=== PATIENT | male | born 1970 | race Caucasian/White ===

== ENCOUNTER 2016-11-01 03:22 | Emergency (ER) | payer OTHER ==
[2016-11-01 03:31] VITALS: BP 121/93; PULSE 90; RESP 18; TEMP 98.2; O2SAT 97
[2016-11-01] MEDS ORDERED: IBUP800T23 PO (04:11)
--- NOTE | 2016-11-01 04:11 | PD ---
HPI Chief Complaint: Injury Time Seen by Provider: 03:41 Travel History International Travel<30 days: No Contact w/Intl Traveler<30days: No Traveled to known affect area: No History of Present Illness HPI The patient is a 46-year-old male that felt some stiffness in his left calf for several days but tonight at about 3:00 pushed off of his left leg and felt a pop like a rubber band in the calf. He complains of pain in the area of the left calf. He can still walk well and extend his ankle without a problem other than minimal pain. [facility] Past Medical History Medical History: Denies Significant Hx Tetanus Vaccination: < 5 Years Influenza Vaccination: No Past Surgical History Surgical History: No Previous Surgery Social History Alcohol Use: No Tobacco Use: No Allergies-Medications (Allergen,Severity, Reaction): Coded Allergies: No Known Allergies (Unverified , 11/01/16) Reported Meds & Prescriptions Reported Meds & Active Scripts Active No Active Prescriptions or Reported Medications Review of Systems Except as stated in HPI: all other systems reviewed are Neg Physical Exam Narrative GENERAL: Well-nourished, well-developed patient. SKIN: Focused skin assessment warm/dry. HEAD: Normocephalic. EYES: No scleral icterus. No injection or drainage. NECK: Supple, trachea midline. No JVD or lymphadenopathy. CARDIOVASCULAR: Regular rate and rhythm without murmurs, gallops, or rubs. RESPIRATORY: Breath sounds equal bilaterally. No accessory muscle use. GASTROINTESTINAL: Abdomen soft, non-tender, nondistended. MUSCULOSKELETAL: No cyanosis, or edema. There is tenderness but no defect noted in the calf. Austin test shows good extension of the ankle with squeezing. The patient can, with some pain, extend his ankle voluntarily. There is no defect in the Achilles tendon or tenderness along the Achilles tendon distally. No obvious swelling is seen. BACK: Nontender without obvious deformity. No CVA tenderness. Data Data Last Documented VS Vital Signs Date Time Temp Pulse Resp B/P Pulse Ox O2 Delivery O2 Flow Rate FiO2 11/01/16 03:44 Room Air 11/01/16 03:31 98.2 90 18 121/93 97 Orders Ketorolac Inj (Toradol Inj) (11/01/16 04:15) MDM Medical Decision Making Medical Screen Exam Complete: Yes Emergency Medical Condition: Yes Medical Record Reviewed: Yes Differential Diagnosis Plantaris muscle rupture, gastrocnemius muscle rupture, Achilles tendon tear Narrative Course The patient appears to have a plantaris muscle rupture. There is no defect in the muscle body itself that I can palpate and I doubt that there is any associated gastrocnemius tear. The patient will rest the leg, use ice pack, wear an David bandage and elevate his leg on pillows at night. He is given Motrin for pain and he wants a pain pill which will be given Lortab 5. Diagnosis Primary Impression: Rupture of plantaris tendon Med/Other Pt SpecificInfo: Prescription(s) given Scripts Ibuprofen 800 Mg Yso378 Mg PO TID #44 TAB Ref 0 Prov:Bart Sanford MD 11/01/16 Disposition: 01 DISCHARGE HOME Condition: Stable Bart Sanford MD Nov 01, 2016 04:11
[2016-11-01] MEDS ORDERED: KETOROLAC TROMETHAMINE 60 MG/2 ML (IM) VIAL IM ONE (04:15)
== END 2016-11-01 04:40 | disposition home or self-care (01) ==
LOC: PHED 03:22
DX: M66.262 Spontaneous rupture of extensor tendons, left lower leg (principal)
CPT/HCPCS: 96372; 99283; J1885